=== PATIENT | male | born 1965 | race Caucasian/White ===

== ENCOUNTER 2016-09-30 07:37 | Emergency (ER) | payer SELFPAY ==
[~2016-09-30] VITALS: Ht 172.7 cm; Wt 50.0 kg
[~2016-09-30 07:37] MED LIST: HYDR10TA16
[2016-09-30 07:43] VITALS: BP 124/74; PULSE 64; RESP 17; TEMP 97.8; O2SAT 99
[2016-09-30] MEDS ORDERED: SODIUM CHLOR 0.9% 1000 ML INJ 1,000 ML IV ONE ×2 (07:44→09:45)
[2016-09-30] MEDS ORDERED: KETOROLAC TROMETHAMINE 30 MG/ML (IVP) VIAL IVP ONE (07:45)
[2016-09-30] MEDS ORDERED: ONDANSETRON HCL 4 MG/2 ML VIAL IVP ONE (07:45)
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
[2016-09-30 08:29] LABS: AUTOMATED NEUTROPHIL # 4.6 TH/MM3 (1.8-7.7); BASOPHIL % 0.5 % (0.0-2.0); EOSINOPHIL % 0.8 % (0.0-4.0); HEMATOCRIT 42.2 % (39.0-51.0); HEMO FLAGS DIFF FINAL; LYMPH % 13.8 % (9.0-44.0); LYMPHOCYTE # 0.8 TH/MM3 (1.0-4.8); MEAN CELL VOLUME 92.5 FL (80.0-100.0); MEAN CORPUSCULAR HGB CONC 34.6 % (32.0-36.0); MONO % 6.8 % (0.0-8.0); NEUT % 78.1 % (16.0-70.0); PLATELET COUNT 207 TH/MM3 (150-450); RED BLOOD COUNT 4.57 MIL/MM3 (4.50-5.90); RED CELL DISTRIBUTION WIDTH 13.3 % (11.6-17.2); WHITE BLOOD COUNT 5.9 TH/MM3 (4.0-11.0)
[2016-09-30 08:34] LABS: ALT (GPT) 12 U/L (12-78); ANION GAP 9 MEQ/L (5-15); AST (GOT) 11 U/L (15-37); BICARBONATE 28.4 MEQ/L (21.0-32.0); BLOOD UREA NITROGEN 10 MG/DL (7-18); CHLORIDE 101 MEQ/L (98-107); GLOMERULAR FILTRATION RATE 76 ML/MIN (>89); POTASSIUM 3.9 MEQ/L (3.5-5.1); SODIUM (NA) 138 MEQ/L (136-145)
[2016-09-30 08:37] LABS: ALKALINE PHOSPHATASE 80 U/L (45-117); TOTAL BILIRUBIN ADULT 2.1 MG/DL (0.2-1.0)
[2016-09-30] MEDS: SODIUM CHLORIDE 0.9% FLUSH 10 ML FLUSH IVF PRN ×2 (08:55→10:46)
--- NOTE | 2016-09-30 08:57 | RADRPT ---
EXAM DATE/TIME: 09/30/2016 08:23 [facility] COMPARISON: No previous studies available for comparison. INDICATIONS : Right side pain with dark urine ORAL CONTRAST: No oral contrast ingested. RADIATION DOSE: 2.80 CTDIvol (mGy) MEDICAL HISTORY : None SURGICAL HISTORY : Non-responsive. ENCOUNTER: Initial ACUITY: 1 day PAIN SCALE: 10/10 LOCATION: Right flank TECHNIQUE: Volumetric scanning of the abdomen and pelvis was performed. Using automated exposure control and ad justment of the mA and/or kV according to patient size, radiation dose was kept as low as reasonably achievable to obtain optimal diagnostic quality images. The lack of IV contrast limits the diagnosis for certain organ pathology. FINDINGS: LOWER LUNGS: The visualized lower lungs are clear. LIVER: Homogeneous density without lesion. There is no dilation of the biliary tree. No calcified gallston es. SPLEEN: Normal size without lesion. PANCREAS: Within normal limits. KIDNEYS: There is hydronephrosis of the right collecting system. The left collecting system is unremarkable. N o calcified renal stones are seen associated with the kidneys. There is dilatation of the right urete r. There is a 3 mm stone in the distal right ureter. ADRENAL GLANDS: Within normal limits. VASCULAR: There is no aortic aneurysm. BOWEL/MESENTERY: The stomach, small bowel, and colon demonstrate no acute abnormality. There is no free intraperitone al air or fluid. ABDOMINAL WALL: Within normal limits. RETROPERITONEUM: There is no lymphadenopathy. BLADDER: No wall thickening or mass. REPRODUCTIVE: Within normal limits. INGUINAL: There is no lymphadenopathy or hernia. MUSCULOSKELETAL: Within normal limits for patient age. CONCLUSION: 1. 3 mm stone in the distal right ureter causing hydronephrosis to the right collecting system. 2. Otherwise unremarkable exam for patient's age. Juanjose Coon MD on September 30, 2016 at 8:51 Board Certified Radiologist. This report was verified electronically.
[2016-09-30 09:29] VITALS: BP 126/69; PULSE 68; RESP 16; TEMP 98; O2SAT 100
[2016-09-30 11:08] LABS: BACTERIA, URINE OCC /hpf; BLOOD, URINE LARGE (NEG); COMMENT (UR) CULTURE INDICATED; CULTURE IF INDICATED CULTURE INDICATED; GLUCOSE,URINE TRACE mg/dL (NEG); HYALINE CAST, URINE 11 /lpf (RARE); KETONE, URINE 40 mg/dL (NEG); MUCUS URINE MOD /lpf (OCC); NITRITE,URINE NEG (NEG); PH, URINE 5.5 (5.0-8.5); SQUAMOUS EPITHELIAL CELL URINE <1 /hpf (0-5)
[2016-09-30 11:11] LABS: URINE COLOR DARK-BROWN (YELLW/STRAW)
[2016-09-30] MEDS ORDERED: MACR100C2 PO (11:17)
[2016-09-30] MEDS ORDERED: DIFL200T PO (11:17)
[2016-09-30] MEDS ORDERED: TYLE325T PO (11:17)
[2016-09-30 11:24] VITALS: BP 120/77; TEMP 97.8
== END 2016-09-30 11:24 | disposition home or self-care (01) ==
LOC: NEPC 07:37
DX: N13.2 Hydronephrosis with renal and ureteral calculous obstruction (principal); B37.41 Candidal cystitis and urethritis; R31.9 Hematuria, unspecified
CPT/HCPCS: 74176; 80053; 81001; 83690; 85025; 87086; 96361; 96374; 96375; 99284; J1885; J2405; J7030